=== PATIENT | male | born 1970 | race Hispanic/Latino ===

== ENCOUNTER 2016-09-23 10:59 | Emergency (ER) | payer OTHER ==
[~2016-09-23] VITALS: Ht 175.3 cm; Wt 122.5 kg
--- NOTE | 2016-09-23 11:26 | ED GI/GU/ABDOMINAL COMPLAINT ---
History of Present Illness General Chief Complaint: Nausea, Vomiting, Diarrhea Stated Complaint: +NVD, ABD PAIN Source: patient Exam Limitations: no limitations Vital Signs & Intake/Output Vital Signs & Intake/Output Vital Signs Date Time Temp Pulse Resp B/P Pulse O2 O2 Flow FiO2 Ox Delivery Rate 09/23 1401 973.0 86 18 156/98 95 Room Air 09/23 1208 999 09/23 1108 95.6 93 18 159/86 96 Room Air Allergies Coded Allergies: NO KNOWN ALLERGIES (01/18/11) Triage Note: 46 Y/O MALE C/O N/V/D X 2 HOURS. C/O DIFFUSE ABDOMINAL PAIN. AFEBRILE. Triage Nurses Notes Reviewed? yes HPI: this patient is a 46-year-old male with a past medical history including diabetes recently started on metformin, first dose today, who presented to the emergency department today for evaluation of abdominal pain. The patient reported that he had a cup of coffee like normal this morning. 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 He has had several episodes of diarrhea. No blood in the vomitus or in his will. The patient is reporting 8 out of 10, cramping, nonradiating epigastric pain which has been constant since onset. He has been unable to tolerate any food or liquid. The patient is denying any fevers, chills, chest pain, difficulty breathing, or any urinary symptoms. (KRYSTYNA WHITE PA-C) Reconcile Medications Ondansetron (Zofran Odt) 4 MG TAB.RAPDIS 1 TAB SL TID PRN nausea and vomiting (ADRIANA JONES MD) Past History Travel History Traveled to [place] past 21 day No Medical History Any Pertinent Medical History? 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 No (KRYSTYNA WHITE PA-C) Review of Systems Review of Systems Constitutional: Reports: no symptoms. EENTM: Reports: no symptoms. Respiratory: Reports: no symptoms. Cardiovascular: Reports: no symptoms. GI: Reports: see HPI. Genitourinary: Reports: no symptoms. Musculoskeletal: Reports: no symptoms. Skin: Reports: no symptoms. Neurological/Psychological: Reports: no symptoms. All Other Systems: Reviewed and Negative (CHRISTOPHER CHAMPAGNE,KRYSTYNA) Physical Exam Physical Exam Gastrointestinal: normal bowel sounds, soft, no organomegaly, nondistended. Epigastric tenderness with no rebound or guarding. Negative Flores sign. No McBurney's point tenderness. No peritoneal signs. No masses appreciated Comments: Well-developed well-nourished person in no acute distress HEENT: Normal EENT exam, moist mucous membranes Pupils equally round and reactive to light. Neck: Supple, no lymphadenopathy Back: Normal gait Cardiovascular: Regular rate and rhythm with no murmurs, rubs or gallops Respiratory: Chest nontender. No respiratory distress. Breath sounds clear to auscultation bilaterally Extremity: Normal and equal pulses Neuro: Alert oriented x3, motor sensory normal, cranial nerves II through XII grossly intact. Skin: No appreciable rash on exposed skin, skin is warm and dry. Psych: Mood and affect is normal, memory and judgment is normal. Core Measures ACS in differential dx? No Severe Sepsis Present: No Septic Shock Present: No (CHRISTOPHER CHAMPAGNE,KRYSTYNA) Progress Differential Diagnosis: AAA, AMI, appendicitis, biliary colic, bowel obstruction , colon cancer, cholecystitis, diverticulitis, gastritis, hepatitis, ischemic bowel, inflamm bowel dis, pancreatitis, PUD/GERD, perforated viscous, pyelonephritis, ureterolithiasis, urinary retention, UTI/pyelo, influenza Plan of Care: Orders Procedure Date/time Status Add-on Test (ER Only) 09/23 1258 Active C-REACTIVE PROTEIN 09/23 1140 Complete RAPID VIRAL INFLUENZA A 09/23 1133 Complete LIPASE 09/23 1133 Complete DIRECT BILIRUBIN 09/23 1133 Complete COMPREHENSIVE METABOLIC PANEL 09/23 1133 Complete CBC WITHOUT DIFFERENTIAL 09/23 1133 Complete AMYLASE 09/23 1133 Complete Laboratory Tests 09/23/16 1140: Anion Gap 14, Estimated GFR > 60, BUN/Creatinine Ratio 16.7, Glucose 119 H, Calcium 10.8 H, Total Bilirubin 1.0, Direct Bilirubin 0.3, AST 33, ALT 65, Alkaline Phosphatase 67, C-Reactive Prot, Quant < 0.5, Total Protein 8.0, Albumin 4.9, Globulin 3.1, Albumin/Globulin Ratio 1.6, Amylase 88, Lipase 133, CBC w Diff NO MAN DIFF REQ, RBC 5.73, MCV 94.5 H, MCH 30.6, RDW 13.5, MPV 9.6, Gran % 81.2 H, Lymphocytes % 11.2 L, Monocytes % 7.0, Eosinophils % 0.3, Basophils % 0.3, Absolute Granulocytes 12.3 H, Absolute Lymphocytes 1.7, Absolute Monocytes 1.1 H, Absolute Eosinophils 0, Absolute Basophils 0, PUBS MCHC 32.4 L Microbiology 09/23 1314 NASOPHARYN: Influenza Virus A & B Rapid Smear - COMP Initial ED EKG: none (CHRISTOPHER CHAMPAGNE,KRYSTYNA) Departure Departure Disposition: HOME OR SELF CARE Condition: Stable Clinical Impression Primary Impression: Viral syndrome Referrals: UNKNOWN (PCP/Family) Additional Instructions: Take Zofran as prescribed. Stay hydrated. Take over the counter motrin or tylenol as needed for pain. Follow-up with your primary care physician for further evaluation. Return for any worsening symptoms or concerns. Departure Forms: Customer Survey General Discharge Information Prescriptions: Current Visit Scripts Ondansetron (Zofran Odt) 1 TAB SL TID PRN nausea and vomiting #10 TAB (CHRISTOPHER CHAMPAGNE,KRYSTYNA) PA/RAYMOND MILL OPERATOR Co-Sign Statement Statement: ED Attending supervision documentation- [] I saw and evaluated the patient. I have also reviewed all the pertinent lab results and diagnostic results. I agree with the findings and the plan of care as documented in the PA's/RAYMOND MILL OPERATOR's documentation. x I have reviewed the ED Record and agree with the PA's/RAYMOND MILL OPERATOR's documentation. [] Additions or exceptions (if any) to the PAs/RAYMOND MILL OPERATOR's note and plan are summarized below: [] (KAREN CHRISTENSEN,ADRIANA)
[2016-09-23 12:07] LABS: ABSOLUTE BASOPHIL COUNT 0 /CUMM (0.0-0.2); ABSOLUTE EOSINOPHIL COUNT 0 /CUMM (0.0-0.7); ABSOLUTE GRANULOCYTE CT 12.3 /CUMM (1.4-6.5); ABSOLUTE LYMPH COUNT 1.7 /CUMM (1.2-3.4); ABSOLUTE MONOCYTE COUNT 1.1 /CUMM (0.10-0.60); BASOPHIL % 0.3 % (0.0-2.0); EOSINOPHIL % 0.3 % (0-5); GRANULOCYTE % 81.2 % (42.2-75.2); HEMATOCRIT 54.2 % (42-52); MEAN CORPUSCULAR HGB 30.6 PG (27.0-31.0); MEAN CORPUSCULAR HGB CONC 32.4 G/DL (33.0-37.0); MEAN CORPUSCULAR VOLUME 94.5 FL (80.0-94.0); MEAN PLATELET VOLUME 9.6 FL (7.4-10.4); PLATELET COUNT 231 /CUMM (130-400); RBC DISTRIBUTION WIDTH 13.5 % (11.5-14.5); RED BLOOD CELL CT 5.73 /CUMM (4.70-6.10); WHITE BLOOD CELL COUNT 15.2 /CUMM (4.8-10.8)
[2016-09-23 14:01] VITALS: BP 156/98
[2016-09-23] MEDS ORDERED: ZOFRAN ODT4 M1 SL (14:03)
== END 2016-09-23 14:09 ==
LOC: ERH 10:59
PROVIDERS: Physician Assistant
DX: B34.9 Viral infection, unspecified (principal)
CPT/HCPCS: 87804; 87804-59; 96374; 96375; J1885; J2405

== ENCOUNTER 2016-12-13 07:26 | Emergency (ER) | payer OTHER ==
[~2016-12-13] VITALS: Ht 175.3 cm; Wt 120.7 kg
[~2016-12-13 07:26] MED LIST: ZOFRAN ODT4 M1 SL
[2016-12-13 07:31] VITALS: BP 159/96
--- NOTE | 2016-12-13 07:57 | ED GENERAL ADULT ---
History of Present Illness General Chief Complaint: Allergy Symptoms Stated Complaint: BILATERAL HANDS AND FACIAL SWELLING Source: patient Exam Limitations: no limitations Vital Signs & Intake/Output Vital Signs & Intake/Output Vital Signs Date Time Temp Pulse Resp B/P B/P Pulse O2 O2 Flow FiO2 Mean Ox Delivery Rate 12/13 0808 99 Room Air 12/13 0731 96.8 81 18 159/96 96 Room Air Room Air Allergies Coded Allergies: NO KNOWN ALLERGIES (01/18/11) Reconcile Medications Famotidine (Pepcid) 20 MG TABLET 1 TAB PO BID PRN ALLERGY Ondansetron (Zofran Odt) 4 MG TAB.RAPDIS 1 TAB SL TID PRN nausea and vomiting Prednisone 10 MG TABLET 1 TAB PO DAILY ALLERGY Triage Note: TRIAGE: 46 Y/O MALE PRESENTS C/O BILAT HAND AND FACIAL SWELLING SINCE LAST NIGHT. LARGE HIVE NOTED TO RIGHT EYE - LIP SWELLING NOTED. DENIES DIFFICULTY BREATHING OR SWALLOWING. "I JUST FEEL WIERD." TOOK 50MG BENADRYL AT 0700 THIS MORNING. Triage Nurses Notes Reviewed? yes HPI: 38-year-old male with past medical history of diabetes mellitus taking Dulaglutide ([facility]) is here due to acute onset of rash, and swelling of his chin, hands since last night. He noticed a wheal below his left eye yesterday around 6:30 pm, and swelling of his upper lip associated with itching, took 2 tablets of Benadryl in this morning upon waking up, he felt that his hands were more swollen, has rash bilaterally on the lower side of his abdomen which are itchy, chin has swollen, and another wheal has appeared below right eye. he took 2 tabs of Benadryl at 7 am this AM. He denies any shortness of breath, chest pain, chest pressure, wheezing, nausea, vomitting, abd pain, similar episodes in the past. He admits that he returned from [place] on Wednesday, where he was bit by mosquitoes several times, but cannot think of unusual exposure in terms of drugs, food, environment, cosmetics. Vitals stable. (ANGELINE CHRISTENSEN,KRIS) Past History Travel History Traveled to [place] past 21 day No Medical History Any Pertinent Medical History? see below for history Neurological: NONE EENT: NONE Cardiovascular: NONE Respiratory: NONE Gastrointestinal: NONE Hepatic: NONE Renal: NONE Musculoskeletal: NONE Psychiatric: NONE Endocrine: diabetes Blood Disorders: NONE Cancer(s): NONE STEWARD/STEWARDESS SECOND/Reproductive: NONE Surgical History Surgical History: non-contributory Psychosocial History What is your primary language Citizen Of [place] Tobacco Use: Never used ETOH Use: occasional use Illicit Drug Use: denies illicit drug use Family History Hx Contributory? No (KRIS MARCUS MD) Review of Systems Review of Systems Constitutional: Reports: see HPI. Denies: chills, diaphoresis, fever, malaise, weakness. EENTM: Reports: no symptoms. Respiratory: Reports: no symptoms. Cardiovascular: Reports: no symptoms. GI: Reports: no symptoms. Genitourinary: Reports: no symptoms. Musculoskeletal: Reports: no symptoms. Skin: Reports: see HPI, rash. Neurological/Psychological: Reports: no symptoms. Hematologic/Endocrine: Reports: no symptoms. All Other Systems: Reviewed and Negative (KRIS MARCUS MD) Physical Exam Physical Exam General Appearance: well developed/nourished, no apparent distress, alert, awake , comfortable Comments: Physical examnination: General: well nourished obese patient, not in distress Head: Normocephalic, atraumatic, UPPER LIP MILDLY SWOLLEN Eyes: Pupils normal in size, regular, reacting to light and accommodation, EOM normal Ears: B/l normal on inspection Nose: Normal on inspection Throat/mouth: Moist mucosa, NO RASH/BREAKDOWN OF MUCOSA Neck: Supple, full range of motion, no thyromegaly Heart: Regular rate, regular rhythm Lung: Normal breath sound bilaterally, Added sound not heard, NO WHEEZE, NO STRIDOR, NOT IN RESP DISTRESS Abd: Soft, non-tender, no distention appreciated, RASHES ON LOWER ABD: ERYTHEMA 5X1 CM, ITCHY, NO BREAKDOWN Back: Normal range of motion Extremities: Normal knee exam bilaterally, no pedal edema, Distal neurovascular intact, RIGHT FINGERS MILDLY SWOLLEN, NO RASHES Neurologic: Alert, oriented x3, Cranial exam grossly intact, Speech is clear and coherent Skin: Warm and dry, RASH MENTIONED ABOVE Psychiatric: Calm, cooperative, coherant Core Measures ACS in differential dx? No CVA/TIA Diagnosis: No Severe Sepsis Present: No Septic Shock Present: No (KRIS MARCUS MD) Progress Differential Diagnoses I considered the following diagnoses in my evaluation of the patient: [allergy] but not anaphylaxis. Plan of Care: Current Medications Sig/Swathi Start time Last Medication Dose Stop Time Status Admin Famotidine 20 MG ONCE ONE 12/14 799 UNVr (Pepcid) 12/13 800 Methylprednisolone 125 MG ONCE ONE 12/14 799 UNVr (Solu Medrol) 12/13 800 Initial ED EKG: none Comments: After medication, patient had decreased itching sensation, rashes were improved, but the swelling was still persistent. He was not in respiratory distress, with no dizziness symptoms were discussed for which he had to return to emergency such as shortness of breath, swelling of his tongue, worsening of rashes, itchiness. (KRIS MARCUS MD) Departure Departure Disposition: HOME OR SELF CARE Condition: Stable Clinical Impression Primary Impression: Acute allergic reaction Qualifiers: Encounter type: initial encounter Qualified Code: T78.40XA - Allergy, unspecified, initial encounter Referrals: PATIENT HAS NO PRIMARY CARE DR (PCP/Family) Additional Instructions: Watch out for shortness of breath, chest pain/chest pressure, worsening of symptoms. Return to emergency if symptoms worsen. Your blood sugar might increase while you are on steroid for the allergy. Please visit your primary care physician within 10 days of discharge. Departure Forms: Customer Survey General Discharge Information Prescriptions: Current Visit Scripts Famotidine (Pepcid) 1 TAB PO BID PRN ALLERGY #6 TAB Prednisone 1 TAB PO DAILY #3 TAB (KRIS MARCUS MD) Resident Co-Sign Statement Statement: ED Attending supervision documentation- [x] I saw and evaluated the patient. I have also reviewed all the pertinent lab results and diagnostic results. I agree with the findings and the plan of care as documented in the Resident's documentation. [] I have reviewed the ED Record and agree with the Resident's documentation. [] Additions or exceptions (if any) to the Resident's note and plan are summarized below: [] (GARRISON CHRISTENSEN,MIKE Rodriguez) Critical Care Note Critical Care Note Critical Care Time: non-applicable (KRIS MARCUS MD)
[2016-12-13] MEDS ORDERED: PEPCID20 M1 PO (08:18)
[2016-12-13] MEDS ORDERED: PREDNISONE10 M2 PO (08:18)
== END 2016-12-13 10:30 ==
LOC: ERH 07:26
DX: T78.40XA Allergy, unspecified, initial encounter (principal)
CPT/HCPCS: 96372; J2930